=== PATIENT | male | born 1965 ===

== ENCOUNTER 2016-06-14 13:44 | Emergency (ER) | payer OTHER ==
[2016-06-14] MEDS ORDERED: Sodium Chloride 0.9% 1,000 ML IV ONE (14:12)
[2016-06-14] MEDS ORDERED: Sodium Chloride 0.9% 1,000 ML ONE (14:51)
[2016-06-14 14:56] LABS: BASO % 0.7 % (0.0-2.0); EOS # 0.1 K/uL (0.0-0.7); EOS % 1.8 % (0.0-4.0); HEMATOCRIT 38.3 % (35.0-51.0); LYMPH # 0.6 K/uL (1.0-4.3); LYMPH % 15.2 % (20.0-40.0); MEAN CELL VOLUME 95.2 fL (80.0-94.0); MEAN CORPUSCULAR HEMOGLOBIN 32.5 pg (27.0-31.0); MEAN CORPUSCULAR HGB CONC 34.2 g/dL (33.0-37.0); MEAN PLATELET VOLUME 7.3 fL (7.2-11.7); MONO # 0.5 K/uL (0.0-0.8); MONO % 11.6 % (0.0-10.0); RED CELL DISTRIBUTION WIDTH 13.3 % (11.5-14.5); WHITE BLOOD COUNT 4.1 K/uL (4.8-10.8)
--- NOTE | 2016-06-14 15:04 | RAD ---
PROCEDURE: CHEST RADIOGRAPH, 1 VIEW HISTORY: SOB COMPARISON: Comparison chest 02/11/2016 FINDINGS: LUNGS: Clear. PLEURA: No pneumothorax or pleural fluid seen. CARDIOVASCULAR: Normal. OSSEOUS STRUCTURES: No significant abnormalities. VISUALIZED UPPER ABDOMEN: Normal. OTHER FINDINGS: None. IMPRESSION: No active disease.
[2016-06-14 15:05] LABS: CHLORIDE 102 mmol/L (98-107)
[2016-06-14 15:06] LABS: POTASSIUM 3.9 mmol/L (3.6-5.2); SODIUM 137 mmol/L (132-148)
[2016-06-14 15:08] LABS: ALB/GLOB RATIO 1.2 (1.0-2.1); AST/SGOT 27 U/L (17-59); BILIRUBIN,TOTAL 0.6 mg/dL (0.2-1.3); CARBON DIOXIDE 23 mmol/L (22-30); GFR AFRICAN-AMERICAN > 60; TOTAL PROTEIN 7.7 g/dL (6.3-8.3)
[2016-06-14 15:09] LABS: ALCOHOL SERUM < 10 mg/dl (0-10); ALKALINE PHOSPHATASE 52 U/L (38-126); ALT/SGPT 36 U/L (21-72); BLOOD UREA NITROGEN 14 mg/dL (9-20); CALCIUM 8.6 mg/dl (8.6-10.4); GLUCOSE,RANDOM 102 mg/dL (75-110)
--- NOTE | 2016-06-14 15:24 | C.PDOC ---
History Of Present Illness The patient, a 51 y/o male, presents to the ED for evaluation of left-sided chest discomfort, weakness, lethargy and diarrhea which began earlier today. Patient denies substance abuse, alcohol abuse, or consumption of new foods. Time Seen by Provider: 06/14/16 14:11 Chief Complaint (Nursing): Cough, Cold, Congestion History Per: Patient History/Exam Limitations: no limitations Onset/Duration Of Symptoms: Hrs Current Symptoms Are (Timing): Still Present Additional History Per: Patient Past Medical History Reviewed: Historical Data, Nursing Documentation, Vital Signs - Medical History PMH: Back Problems Surgical History: No Surg Hx Family History: States: Unknown Family Hx - Social History Hx Tobacco Use: No Hx Alcohol Use: No Hx Substance Use: Yes (thc) - Immunization History Hx Tetanus Toxoid Vaccination: No Hx Influenza Vaccination: No Hx Pneumococcal Vaccination: No Review Of Systems Except As Marked, All Systems Reviewed And Found Negative. Constitutional: Positive for: Weakness, Other (+lethargy ). Negative for: Fever , Chills Cardiovascular: Positive for: Chest Pain (left-sided, discomfort ) Physical Exam - Physical Exam Appears: Non-toxic, No Acute Distress Skin: Normal Color, Warm, Dry, No Rash Head: Atraumatic, Normacephalic Eye(s): bilateral: Normal Inspection, PERRL, EOMI Oral Mucosa: Moist Neck: Normal ROM, Supple Chest: Symmetrical, No Deformity, Tenderness (to left side of chest on palpation ) Respiratory: Normal Breath Sounds, No Rales, No Rhonchi, No Wheezing Gastrointestinal/Abdominal: Soft, No Tenderness, No Guarding, No Rebound Back: Normal Inspection, No Vertebral Tenderness, No Paraspinal Tenderness Extremity: Normal ROM, Capillary Refill (less than 2 seconds) Pulses: Left Dorsalis Pedis: Normal, Right Dorsalis Pedis: Normal Neurological/Psych: Oriented x3, Normal Speech, Normal Cognition Gait: Steady ED Course And Treatment - Laboratory Results Result Diagrams: 06/14/16 14:53 06/14/16 14:53 Lab Interpretation: Normal (trop/bnp neg.) ECG: Interpreted By Me, Viewed By Me ECG Rhythm: Sinus Rhythm ECG Interpretation: No Acute Changes Rate From EC - Radiology CXR: Interpreted by Me CXR Interpretation: Yes: No Acute Disease - Other Rad CXR X-Ray: Interpreted by Me, Viewed By Me, Read By Radiologist Interpretation: IMPRESSION: No active disease. Reevaluation Time: 15:35 Reassessment Condition: Improved Medical Decision Making Medical Decision Making: L chest costochondritis, ? viral diarrhea vs withdrawal syndrome (pt denies) Disposition Doctor Will See Patient In The: Office Counseled Patient/Family Regarding: Studies Performed, Diagnosis - Disposition Referrals: Saleem Bloom MD [Medical Doctor] - Disposition: HOME/ ROUTINE Disposition Time: 15:36 Condition: GOOD Additional Instructions: plenty of fluids, Motrin 400-600 mg every 6 hours as needed for body aches/L chest discomfort. Follow-up with your pmd to consider referral for Gastroenterology for your supposed rectal bleeding. Normal Hemoglobin today. Instructions: Costochondritis (ED), Acute Diarrhea (ED) - Clinical Impression Clinical Impression: Chest discomfort - Scribe Statement The provider has reviewed the documentation as recorded by the Scribe (Kary Crum) Provider Attestation: All medical record entries made by the Scribe were at my direction and personally dictated by me. I have reviewed the chart and agree that the record accurately reflects my personal performance of the history, physical exam, medical decision making, and the department course for this patient. I have also personally directed, reviewed, and agree with the discharge instructions and disposition.
[2016-06-14 16:03] VITALS: BP 110/58; PULSE 83; RESP 16; TEMP 99.4; O2SAT 99
--- NOTE | 2016-06-15 22:22 | CARD ---
APPROVED REPORT EKG Measurement Heart [id number] <Conclusion> Normal sinus rhythm Normal ECG
== END 2016-06-14 16:02 | disposition home or self-care (01) ==
LOC: C.ER 13:44
DX: R07.89 Other chest pain (principal)
CPT/HCPCS: 71010; 80053; 80320; 83880; 84484; 85025; 93005; 96374; 99285; J1885; J7040

== ENCOUNTER 2017-05-17 20:51 | Emergency (ER) | payer OTHER ==
[2017-05-17 21:05] VITALS: PULSE 87; RESP 20; TEMP 99.4; O2SAT 96
[2017-05-17 21:06] VITALS: BP 100/60
[2017-05-17] MEDS ORDERED: guaiFENesin 100 mg/5 ml Syrup UD PO STA (21:54)
--- NOTE | 2017-05-17 21:56 | C.PDOC ---
History Of Present Illness 52 year old male presents to the ER with a complaint of congestion, nonproductive cough, and body aches for the past 1 day. Patient reports he was visited by his sister yesterday who presented with the same symptoms. Denies fever or chills. Time Seen by Provider: 05/17/17 21:38 Chief Complaint (Nursing): Flu-like Symptoms History Per: Patient History/Exam Limitations: no limitations Onset/Duration Of Symptoms: Days Current Symptoms Are (Timing): Still Present Location Of Pain: Diffuse Myalgias Sick Contacts (Context): None Associated Symptoms: Cough, Myalgias, Nasal Congestion Ear Symptoms: Bilateral: None Recent travel outside of the [place]: No Past Medical History Reviewed: Historical Data, Nursing Documentation, Vital Signs Vital Signs: Last Vital Signs Temp 99.4 F 05/17/17 20:54 Pulse 87 05/17/17 20:54 Resp 20 05/17/17 20:54 BP 100/60 05/17/17 20:54 Pulse Ox 96 05/17/17 21:55 - Medical History PMH: Back Problems Family History: States: Unknown Family Hx - Social History Hx Tobacco Use: No Hx Alcohol Use: No Hx Substance Use: Yes (thc) - Immunization History Hx Tetanus Toxoid Vaccination: No Hx Influenza Vaccination: No Hx Pneumococcal Vaccination: No Review Of Systems Constitutional: Negative for: Fever, Chills ENT: Positive for: Nose Congestion Respiratory: Positive for: Cough. Negative for: Sputum Musculoskeletal: Positive for: Other (Body aches) Physical Exam - Physical Exam Appears: Non-toxic, No Acute Distress Skin: Normal Color, Warm, Dry Head: Atraumatic, Normacephalic Eye(s): bilateral: Normal Inspection Oral Mucosa: Moist Chest: Symmetrical, No Tenderness Cardiovascular: Rhythm Regular Respiratory: No Rales, Rhonchi (Mild scattered), Wheezing Gastrointestinal/Abdominal: Soft, No Tenderness Neurological/Psych: Oriented x3, Normal Speech ED Course And Treatment O2 Sat by Pulse Oximetry: 96 (room air) Pulse Ox Interpretation: Normal Medical Decision Making Medical Decision Making: typical influenza s/s + diarrhea stable vs's educated and first dose given in ED Disposition Doctor Will See Patient In The: Office Counseled Patient/Family Regarding: Studies Performed, Diagnosis - Disposition Referrals: [facility] [Outside] Disposition: HOME/ ROUTINE Disposition Time: 21:55 Condition: GOOD Additional Instructions: Tamiflu 75 mg twice a day for 5 days- anti-viral treatment for Influenza Dayquil and Nyquil (or non-brand name equivalents) liberally for symptomatic relief. Plenty of fluids BRAT diet (bananas, white rice, apples, toast/bread) for watery stools/diarrhea. Remember these symptoms will last 10-14 days, be patient. Follow-up in our outpatient Clinic as needed. Prescriptions: Oseltamivir [Tamiflu] 75 mg PO BID #9 cap Instructions: Flu, Adult (DC) Forms: [employer] (Frisian) - Clinical Impression Clinical Impression: Influenza-like illness - Scribe Statement The provider has reviewed the documentation as recorded by the Scribe Casper Gray All medical record entries made by the Scribe were at my direction and personally dictated by me. I have reviewed the chart and agree that the record accurately reflects my personal performance of the history, physical exam, medical decision making, and the department course for this patient. I have also personally directed, reviewed, and agree with the discharge instructions and disposition.
[2017-05-17] MEDS ORDERED: guaiFENesin 100 mg/5 ml Syrup UD ONE (22:04)
--- NOTE | 2017-05-18 22:49 | CARD ---
APPROVED REPORT EKG Measurement Heart [id number] <Conclusion> Normal sinus rhythm Normal ECG
== END 2017-05-17 22:15 | disposition home or self-care (01) ==
LOC: C.ER 20:51
DX: J11.1 Influenza due to unidentified influenza virus with other respiratory manifestations (principal)

== ENCOUNTER 2018-04-15 05:10 | Observation (INO) | payer SELFPAY ==
[2018-04-15] MEDS ORDERED: Sodium Chloride 0.9% 1,000 ML IV ONE ×3 (05:27→10:00)
--- NOTE | 2018-04-15 05:27 | C.PDOC ---
History Of Present Illness 53 year old male presents to the ER with a complaint of fever for the past 5 days associated with cough. Patient reports now having pain with coughing. Patient had syncopal episode while in ER. Denies nausea, vomiting, or abdominal pain. Chief Complaint (Nursing): Syncope History Per: Patient History/Exam Limitations: no limitations Onset/Duration Of Symptoms: Days (5) Current Symptoms Are (Timing): Still Present Associated Symptoms: Fever, Cough, Other (Syncope) Recent travel outside of the [place]: No Past Medical History Reviewed: Historical Data, Nursing Documentation, Vital Signs Vital Signs: Last Vital Signs Temp 102.6 F H 04/15/18 05:12 Pulse 92 H 04/15/18 05:24 Resp 20 04/15/18 05:12 BP 92/53 L 04/15/18 05:24 Pulse Ox 100 04/15/18 05:12 - Medical History PMH: Back Problems Family History: States: Unknown Family Hx - Social History Hx Tobacco Use: No Hx Alcohol Use: No Hx Substance Use: Yes (thc) - Immunization History Hx Tetanus Toxoid Vaccination: No Hx Influenza Vaccination: No Hx Pneumococcal Vaccination: No Review Of Systems Constitutional: Positive for: Fever Cardiovascular: Negative for: Chest Pain, Palpitations Respiratory: Positive for: Cough, Pleuritic Pain Gastrointestinal: Negative for: Nausea, Vomiting Neurological: Positive for: Other (Syncope). Negative for: Weakness, Numbness Physical Exam - Physical Exam Appears: Non-toxic, Other (Mildly in distress due to pain) Skin: Normal Color, Warm, Dry Head: Atraumatic, Normacephalic Eye(s): bilateral: Normal Inspection, PERRL, EOMI Oral Mucosa: Moist Neck: Normal, Supple Chest: Symmetrical, No Tenderness Cardiovascular: Rhythm Regular Respiratory: No Rales, Rhonchi (occasional), No Wheezing Gastrointestinal/Abdominal: Soft, No Tenderness Back: No CVA Tenderness Extremity: Normal ROM (x4) Neurological/Psych: Oriented x3, Normal Speech, Other (No focal deficit) Gait: Steady ED Course And Treatment - Laboratory Results Result Diagrams: 04/15/18 05:35 04/15/18 05:35 ECG: Interpreted By Me, Viewed By Me ECG Rhythm: Sinus Rhythm ECG Interpretation: No Acute Changes Interpretation Of ECG: NSR, poss. LAE, borderline tracings. Rate From EC O2 Sat by Pulse Oximetry: 100 (Room air) Pulse Ox Interpretation: Normal Progress Note: CT head, EKG, blood work, CXR, flu swab, and urinalysis ordered. IV fluids and tylenol administered. Disposition - Disposition Disposition Time: 07:00 Condition: STABLE Forms: [facility] (Estonian) - Clinical Impression Clinical Impression: Syncope, Febrile illness - Scribe Statement The provider has reviewed the documentation as recorded by the Scribe Casper Gray All medical record entries made by the Scribe were at my direction and personally dictated by me. I have reviewed the chart and agree that the record accurately reflects my personal performance of the history, physical exam, medical decision making, and the department course for this patient. I have also personally directed, reviewed, and agree with the discharge instructions and disposition. Physician Patient Turnover Patient Signed Over To: Nu Muñiz Handoff Comments: pending CXR, Hx of syncope, cough, and fever.
[2018-04-15 05:40] LABS: BASO % 0.9 % (0.0-2.0); EOS % 1.1 % (0.0-4.0); HEMOGLOBIN 13.5 g/dL (12.0-18.0); LYMPH # 1.2 K/uL (1.0-4.3); LYMPH % 30.6 % (20.0-40.0); MEAN CORPUSCULAR HEMOGLOBIN 33.5 pg (27.0-31.0); MEAN CORPUSCULAR HGB CONC 34.2 g/dL (33.0-37.0); MONO # 0.6 K/uL (0.0-0.8); MONO % 16.4 % (0.0-10.0); RBC 4.04 Mil/uL (4.40-5.90); RED CELL DISTRIBUTION WIDTH 13.3 % (11.5-14.5); WHITE BLOOD COUNT 3.8 K/uL (4.8-10.8)
[2018-04-15 05:45] LABS: INR 1.1; PARTIAL THROMBOPLASTIN TIME 38 SECONDS (21-34); PROTHROMBIN TIME 12.5 SECONDS (9.7-12.2)
[2018-04-15 05:45] LABS: URINE BILIRUBIN NEGATIVE (NEGATIVE); URINE BLOOD NEGATIVE (NEGATIVE); URINE CLARITY Clear (Clear); URINE COLOR Yellow (YELLOW); URINE GLUCOSE (UA) NORMAL (Normal); URINE LEUKOCYTE ESTERASE NEG Leu/uL (Negative); URINE PROTEIN 1+ mg/dL (NEGATIVE); URINE UROBILINOGEN NORMAL mg/dL (0.2-1.0)
[2018-04-15 05:50] LABS: ALB/GLOB RATIO 1.5 (1.0-2.1); ALBUMIN 4.3 g/dL (3.5-5.0); ALT/SGPT 26 U/L (21-72); AST/SGOT 26 U/L (17-59); BLOOD UREA NITROGEN 25 mg/dL (9-20); CALCIUM 8.3 mg/dl (8.6-10.4); GFR NON-AFRICAN AMERICAN > 60
[2018-04-15 05:56] LABS: D DIMER < 200 ng/mlDDU (0-243)
[2018-04-15 05:59] LABS: BARBITURATES, UR NEGATIVE (NEGATIVE); BENZODIAZEPINES, UR NEGATIVE (NEGATIVE); OPIATES, UR NEGATIVE (NEGATIVE); PHENCYCLIDINE, UR NEGATIVE (NEGATIVE)
--- NOTE | 2018-04-15 07:36 | CT ---
Date of service: 04/15/2018 PROCEDURE: CT HEAD WITHOUT CONTRAST. HISTORY: syncope COMPARISON: None available. TECHNIQUE: Axial computed tomography images were obtained through the head/brain without intravenous contrast. Radiation dose: Total exam DLP = 1180.21 mGy-cm. This CT exam was performed using one or more of the following dose reduction techniques: Automated exposure control, adjustment of the mA and/or kV according to patient size, and/or use of iterative reconstruction technique. FINDINGS: HEMORRHAGE: No intracranial hemorrhage. BRAIN: No mass effect or edema. No atrophy or chronic microvascular ischemic changes. VENTRICLES: Unremarkable. No hydrocephalus. CALVARIUM: Unremarkable. PARANASAL SINUSES: Mild mucosal thickening and opacification of the ethmoid air cells. MASTOID AIR CELLS: Unremarkable as visualized. No inflammatory changes. OTHER FINDINGS: Study limited secondary to suboptimal patient positioning. IMPRESSION: No acute intracranial abnormality. Sinus mucosal disease as above. If symptoms persists, consider correlation with MRI. A preliminary report was generated at 6:43 a.m. on 04/15/[address] Ernesto Vogt from [employer].
[2018-04-15] MEDS ORDERED: Albuterol 0.083% Inhal Sol (2.5 mg/3 mL) UD IH STA (07:54)
[2018-04-15] MEDS ORDERED: Albuterol 0.083% Inhal Sol (2.5 mg/3 mL) UD ONE (08:08)
--- NOTE | 2018-04-15 09:11 | RAD ---
Date of service: 04/15/2018 PROCEDURE: CHEST RADIOGRAPH, 1 VIEW HISTORY: SOB COMPARISON: 06/14/2016 FINDINGS: LUNGS: Clear. PLEURA: No pneumothorax or pleural fluid seen. CARDIOVASCULAR: No aortic atherosclerotic calcification present. Normal. OSSEOUS STRUCTURES: No significant abnormalities. VISUALIZED UPPER ABDOMEN: Normal. OTHER FINDINGS: None. IMPRESSION: No active disease.
[2018-04-15] MEDS ORDERED: Albuterol-Ipratrop 3 mg / 0.5 (3 ml) UD INH ONE (10:30)
[2018-04-15 11:22] LABS: ABG ALLEN TEST POS; ARTERIAL BLOOD GAS HCO3 22.7 mmol/L (21-28); ARTERIAL BLOOD GAS PCO2 30 mm/Hg (35-45); ARTERIAL BLOOD GAS PH 7.44 (7.35-7.45); ARTERIAL BLOOD GAS PO2 66 mm/Hg (80-100); ARTERIAL BLOOD GAS TCO2 21.3 mmol/L (22-28)
[2018-04-15] MEDS ORDERED: Vancomycin 1 gm/NS 200 ml 1 GM/200 ML BAG IVPB SCH ×2 (14:30→15:30)
[2018-04-15] MEDS ORDERED: Piperacill/Tazo 3.375gm in Dex 3.375 GM/50 ML BAG IVPB SCH (14:30)
--- NOTE | 2018-04-15 15:02 | CP.PCM.HP ---
<Bairon De Santiago - Last Filed: 04/15/18 15:12> History of Present Illness - History of Present Illness History of Present Illness: PGY-1 H&P for Dr. Jolley's service CC: sob, fevers, cough, syncope, bodyaches, pleuritic pain HPI: Patient is a 53 yo male w/ PMH of PTSD admitted to hospital for fevers and low blood pressure. Patient states on Thursday he began having all of his symptoms including cough, fever, body aches, pleuritic chest pain, weakness, vomiting, and diarrhea. Patient states he had no appetite due to the nasuea. Patient states a coworker at work was also sick with similar complaints who went to hospital. Patient states he took multiple Tylenol every 4 hours yesterday to ramone his symptoms. Patient states he was walking to hospital but does not remember how he actually got into hospital probably 2/2 patient passing out. Patient denies constipation, vision changes, sneezing. PMH- PTSD PSH- Denies FH- Denies Alls- NKDA Meds- Marijuana for PTSD Social- Admits to tobacco use (20 years), MJ and cocaine use, denies alcohol use Code- Full Code Present on Admission - Present on Admission Any Indicators Present on Admission: No Review of Systems - Review of Systems Review of Systems: 12 point ROS obtained and noted in HPI Past Patient History - Infectious Disease Hx of Infectious Diseases: None - Past Social History Smoking Status: Heavy Smoker > 10 Cigarettes Daily - CARDIAC Other/Comment: ? heart problems. - PSYCHIATRIC Hx Substance Use: Yes (thc) - SURGICAL HISTORY Hx Surgeries: Yes Hx Orthopedic Surgery: Yes (back surgery) Other/Comment: back surgery - ANESTHESIA Hx Anesthesia: Yes Hx Anesthesia Reactions: No Meds Allergies/Adverse Reactions: Allergies Allergy/AdvReac Type Severity Reaction Status Date / Time No Known Allergies Allergy Verified 04/15/18 05:18 Physical Exam - Constitutional Appears: Non-toxic, No Acute Distress - Head Exam Head Exam: NORMAL INSPECTION, NORMOCEPHALIC - Eye Exam Eye Exam: EOMI, Normal appearance. absent: Nystagmus, Scleral icterus - ENT Exam ENT Exam: Mucous Membranes Dry - Respiratory Exam Respiratory Exam: Wheezes, NORMAL BREATHING PATTERN. absent: Decreased Breath Sounds, Clear to Auscultation Bilateral, Rhonchi, Respiratory Distress - Cardiovascular Exam Cardiovascular Exam: REGULAR RHYTHM, +S1, +S2. absent: Tachycardia - GI/Abdominal Exam GI & Abdominal Exam: Normal Bowel Sounds, Soft. absent: Diminished Bowel Sounds, Distended, Firm, Guarding, Tenderness - Extremities Exam Extremities exam: Positive for: normal inspection. Negative for: calf tenderness, pedal edema - Neurological Exam Neurological exam: Alert, Oriented x3 - Psychiatric Exam Psychiatric exam: Normal Affect, Normal Mood - Skin Skin Exam: Intact, Normal Color Results - Vital Signs Recent Vital Signs: Last Vital Signs Temp 98.3 F 04/15/18 11:00 Pulse 71 04/15/18 11:00 Resp 20 04/15/18 11:00 BP 97/67 L 04/15/18 11:00 Pulse Ox 96 04/15/18 14:34 - Labs Result Diagrams: 04/15/18 05:35 04/15/18 05:35 Labs: Laboratory Results - last 24 hr 04/15/18 04/15/18 04/15/18 05:13 05:35 05:35 WBC 3.8 L RBC 4.04 L Hgb 13.5 Hct 39.6 MCV 98.0 H D MCH 33.5 H MCHC 34.2 RDW 13.3 Plt Count 229 MPV 8.0 Neut % (Auto) 51.0 Lymph % (Auto) 30.6 [place] % (Auto) 16.4 H Eos % (Auto) 1.1 Baso % (Auto) 0.9 Neut # (Auto) 2.0 Lymph # (Auto) 1.2 [place] # (Auto) 0.6 Eos # (Auto) 0.0 Baso # (Auto) 0.0 PT 12.5 H INR 1.1 APTT 38 H D-Dimer, Quantitative < 200 Puncture Site pCO2 pO2 HCO3 ABG pH ABG Total CO2 ABG O2 Saturation ABG Base Excess Tim[place] Test ABG Potassium A-a O2 Difference Respiratory Index Glucose Lactate FiO2 Sodium Potassium Chloride Carbon Dioxide Anion Gap BUN Creatinine Est GFR ( Amer) Est GFR (Non-Af Amer) POC Glucose (mg/dL) 98 Random Glucose Calcium Total Bilirubin AST ALT Alkaline Phosphatase Troponin I NT-Pro-B Natriuret Pep Total Protein Albumin Globulin Albumin/Globulin Ratio Arterial Blood Potassium Urine Color Urine Clarity Urine pH Ur Specific [place] Urine Protein Urine Glucose (UA) Urine Ketones Urine Blood Urine Nitrate Urine Bilirubin Urine Urobilinogen Ur Leukocyte Esterase Urine WBC (Auto) Urine RBC (Auto) Urine Opiates Screen Urine Methadone Screen Ur Barbiturates Screen Ur Phencyclidine Scrn Ur Amphetamines Screen U Benzodiazepines Scrn U Oth Cocaine Metabols U Cannabinoids Screen Influenza Typ A,B (EIA) 04/15/18 04/15/18 04/15/18 05:35 05:40 05:40 WBC RBC Hgb Hct MCV MCH MCHC RDW Plt Count MPV Neut % (Auto) Lymph % (Auto) [place] % (Auto) Eos % (Auto) Baso % (Auto) Neut # (Auto) Lymph # (Auto) [place] # (Auto) Eos # (Auto) Baso # (Auto) PT INR APTT D-Dimer, Quantitative Puncture Site pCO2 pO2 HCO3 ABG pH ABG Total CO2 ABG O2 Saturation ABG Base Excess [place] Test ABG Potassium A-a O2 Difference Respiratory Index Glucose Lactate FiO2 Sodium 136 Potassium 4.2 Chloride 102 Carbon Dioxide 24 Anion Gap 14 BUN 25 H Creatinine 1.1 Est GFR ( Amer) > 60 Est GFR (Non-Af Amer) > 60 POC Glucose (mg/dL) Random Glucose 98 Calcium 8.3 L Total Bilirubin 0.3 AST 26 ALT 26 Alkaline Phosphatase 81 Troponin I < 0.0120 NT-Pro-B Natriuret Pep 47.0 Total Protein 7.3 Albumin 4.3 Globulin 2.9 Albumin/Globulin Ratio 1.5 Arterial Blood Potassium Urine Color Yellow Urine Clarity Clear Urine pH 9.0 Ur Specific [place] 1.020 Urine Protein 1+ H Urine Glucose (UA) Normal Urine Ketones Negative Urine Blood Negative Urine Nitrate Negative Urine Bilirubin Negative Urine Urobilinogen Normal Ur Leukocyte Esterase Neg Urine WBC (Auto) < 1 Urine RBC (Auto) < 1 Urine Opiates Screen Negative Urine Methadone Screen Negative Ur Barbiturates Screen Negative Ur Phencyclidine Scrn Negative Ur Amphetamines Screen Negative U Benzodiazepines Scrn Negative U Oth Cocaine Metabols Positive H U Cannabinoids Screen Positive H Influenza Typ A,B (EIA) 04/15/18 04/15/18 06:14 11:19 WBC RBC Hgb Hct MCV MCH MCHC RDW Plt Count MPV Neut % (Auto) Lymph % (Auto) [place] % (Auto) Eos % (Auto) Baso % (Auto) Neut # (Auto) Lymph # (Auto) [place] # (Auto) Eos # (Auto) Baso # (Auto) PT INR APTT D-Dimer, Quantitative Puncture Site Rra pCO2 30 L pO2 66 L HCO3 22.7 ABG pH 7.44 ABG Total CO2 21.3 L ABG O2 Saturation 95.0 ABG Base Excess -2.7 L [place] Test Pos ABG Potassium 3.5 L A-a O2 Difference 46.0 Respiratory Index 0.7 Glucose 86 Lactate 0.7 FiO2 21.0 Sodium 141.0 Potassium Chloride 112.0 H Carbon Dioxide Anion Gap BUN Creatinine Est GFR ( Amer) Est GFR (Non-Af Amer) POC Glucose (mg/dL) Random Glucose Calcium Total Bilirubin AST ALT Alkaline Phosphatase Troponin I NT-Pro-B Natriuret Pep Total Protein Albumin Globulin Albumin/Globulin Ratio Arterial Blood Potassium 3.5 L Urine Color Urine Clarity Urine pH Ur Specific [place] Urine Protein Urine Glucose (UA) Urine Ketones Urine Blood Urine Nitrate Urine Bilirubin Urine Urobilinogen Ur Leukocyte Esterase Urine WBC (Auto) Urine RBC (Auto) Urine Opiates Screen Urine Methadone Screen Ur Barbiturates Screen Ur Phencyclidine Scrn Ur Amphetamines Screen U Benzodiazepines Scrn U Oth Cocaine Metabols U Cannabinoids Screen Influenza Typ A,B (EIA) Negative for flu a/b Assessment & Plan - Assessment and Plan (Free Text) Assessment: Patient is a 53 yo male w/ PMH of PTSD admitted to hospital for flu like symptoms. Of note patient had high fevers and low blood pressure. CXR clear. Influenza negative. Will treat empirically for flu and PNA due to clinical symptoms. Sepsis likely 2/2 from respiratory infection (viral vs bacterial) 04/15/18 CXR clear Tylenol PRN for fevers Robitussin PRN Procal pending Influenza negative NS bolus x 2 Tamiflu 75mg po bid Zosyn/Vanc for empiric PNA coverage BCx pending Trop pending Syncope On admission patient was hypotensive NS bolus x 2; Fluids dc'ed as patient able to tolerate meals and fluids Echo pending SOB possible COPD exacerbation from infectious etiology patient has no formal diagnosis but has > 20 year smoking history + wheezing on exam Duoneb x 2; Duoneb PRN NC PRN Substance Abuse Educated patient on UDS results and the effects of cocaine to heart and lungs GI ppx: Protonix PO 40mg po daily DVT ppx: Heparin 5000 sc q8, SCDs b/l PGY-1 Bairon De Santiago Medical Management discussed with Dr. Jolley <Danny Jolleyras - Last Filed: 04/15/18 19:41> Results - Vital Signs Recent Vital Signs: Last Vital Signs Temp 100.6 F H 04/15/18 17:57 Pulse 85 04/15/18 16:00 Resp 22 04/15/18 16:00 BP 114/70 04/15/18 16:00 Pulse Ox 97 04/15/18 16:00 - Labs Result Diagrams: 04/15/18 05:35 04/15/18 05:35 Labs: Laboratory Results - last 24 hr 04/15/18 04/15/18 04/15/18 05:13 05:35 05:35 WBC 3.8 L RBC 4.04 L Hgb 13.5 Hct 39.6 MCV 98.0 H D MCH 33.5 H MCHC 34.2 RDW 13.3 Plt Count 229 MPV 8.0 Neut % (Auto) 51.0 Lymph % (Auto) 30.6 [place] % (Auto) 16.4 H Eos % (Auto) 1.1 Baso % (Auto) 0.9 Neut # (Auto) 2.0 Lymph # (Auto) 1.2 [place] # (Auto) 0.6 Eos # (Auto) 0.0 Baso # (Auto) 0.0 PT 12.5 H INR 1.1 APTT 38 H D-Dimer, Quantitative < 200 Puncture Site pCO2 pO2 HCO3 ABG pH ABG Total CO2 ABG O2 Saturation ABG Base Excess [place] Test ABG Potassium A-a O2 Difference Respiratory Index Glucose Lactate FiO2 Sodium Potassium Chloride Carbon Dioxide Anion Gap BUN Creatinine Est GFR ( Amer) Est GFR (Non-Af Amer) POC Glucose (mg/dL) 98 Random Glucose Calcium Total Bilirubin AST ALT Alkaline Phosphatase Troponin I NT-Pro-B Natriuret Pep Total Protein Albumin Globulin Albumin/Globulin Ratio Procalcitonin Arterial Blood Potassium Urine Color Urine Clarity Urine pH Ur Specific [place] Urine Protein Urine Glucose (UA) Urine Ketones Urine Blood Urine Nitrate Urine Bilirubin Urine Urobilinogen Ur Leukocyte Esterase Urine WBC (Auto) Urine RBC (Auto) Urine Opiates Screen Urine Methadone Screen Ur Barbiturates Screen Ur Phencyclidine Scrn Ur Amphetamines Screen U Benzodiazepines Scrn U Oth Cocaine Metabols U Cannabinoids Screen Influenza Typ A,B (EIA) 04/15/18 04/15/18 04/15/18 05:35 05:40 05:40 WBC RBC Hgb Hct MCV MCH MCHC RDW Plt Count MPV Neut % (Auto) Lymph % (Auto) [place] % (Auto) Eos % (Auto) Baso % (Auto) Neut # (Auto) Lymph # (Auto) [place] # (Auto) Eos # (Auto) Baso # (Auto) PT INR APTT D-Dimer, Quantitative Puncture Site pCO2 pO2 HCO3 ABG pH ABG Total CO2 ABG O2 Saturation ABG Base Excess [place] Test ABG Potassium A-a O2 Difference Respiratory Index Glucose Lactate FiO2 Sodium 136 Potassium 4.2 Chloride 102 Carbon Dioxide 24 Anion Gap 14 BUN 25 H Creatinine 1.1 Est GFR ( Amer) > 60 Est GFR (Non-Af Amer) > 60 POC Glucose (mg/dL) Random Glucose 98 Calcium 8.3 L Total Bilirubin 0.3 AST 26 ALT 26 Alkaline Phosphatase 81 Troponin I < 0.0120 NT-Pro-B Natriuret Pep 47.0 Total Protein 7.3 Albumin 4.3 Globulin 2.9 Albumin/Globulin Ratio 1.5 Procalcitonin Arterial Blood Potassium Urine Color Yellow Urine Clarity Clear Urine pH 9.0 Ur Specific [place] 1.020 Urine Protein 1+ H Urine Glucose (UA) Normal Urine Ketones Negative Urine Blood Negative Urine Nitrate Negative Urine Bilirubin Negative Urine Urobilinogen Normal Ur Leukocyte Esterase Neg Urine WBC (Auto) < 1 Urine RBC (Auto) < 1 Urine Opiates Screen Negative Urine Methadone Screen Negative Ur Barbiturates Screen Negative Ur Phencyclidine Scrn Negative Ur Amphetamines Screen Negative U Benzodiazepines Scrn Negative U Oth Cocaine Metabols Positive H U Cannabinoids Screen Positive H Influenza Typ A,B (EIA) 04/15/18 04/15/18 04/15/18 06:14 11:05 11:19 WBC RBC Hgb Hct MCV MCH MCHC RDW Plt Count MPV Neut % (Auto) Lymph % (Auto) [place] % (Auto) Eos % (Auto) Baso % (Auto) Neut # (Auto) Lymph # (Auto) [place] # (Auto) Eos # (Auto) Baso # (Auto) PT INR APTT D-Dimer, Quantitative Puncture Site Rra pCO2 30 L pO2 66 L HCO3 22.7 ABG pH 7.44 ABG Total CO2 21.3 L ABG O2 Saturation 95.0 ABG Base Excess -2.7 L [place] Test Pos ABG Potassium 3.5 L A-a O2 Difference 46.0 Respiratory Index 0.7 Glucose 86 Lactate 0.7 FiO2 21.0 Sodium 141.0 Potassium Chloride 112.0 H Carbon Dioxide Anion Gap BUN Creatinine Est GFR ( Amer) Est GFR (Non-Af Amer) POC Glucose (mg/dL) Random Glucose Calcium Total Bilirubin AST ALT Alkaline Phosphatase Troponin I NT-Pro-B Natriuret Pep Total Protein Albumin Globulin Albumin/Globulin Ratio Procalcitonin 0.07 L Arterial Blood Potassium 3.5 L Urine Color Urine Clarity Urine pH Ur Specific [place] Urine Protein Urine Glucose (UA) Urine Ketones Urine Blood Urine Nitrate Urine Bilirubin Urine Urobilinogen Ur Leukocyte Esterase Urine WBC (Auto) Urine RBC (Auto) Urine Opiates Screen Urine Methadone Screen Ur Barbiturates Screen Ur Phencyclidine Scrn Ur Amphetamines Screen U Benzodiazepines Scrn U Oth Cocaine Metabols U Cannabinoids Screen Influenza Typ A,B (EIA) Negative for flu a/b 04/15/18 17:20 WBC RBC Hgb Hct MCV MCH MCHC RDW Plt Count MPV Neut % (Auto) Lymph % (Auto) [place] % (Auto) Eos % (Auto) Baso % (Auto) Neut # (Auto) Lymph # (Auto) [place] # (Auto) Eos # (Auto) Baso # (Auto) PT INR APTT D-Dimer, Quantitative Puncture Site pCO2 pO2 HCO3 ABG pH ABG Total CO2 ABG O2 Saturation ABG Base Excess [place] Test ABG Potassium A-a O2 Difference Respiratory Index Glucose Lactate FiO2 Sodium Potassium Chloride Carbon Dioxide Anion Gap BUN Creatinine Est GFR ( Amer) Est GFR (Non-Af Amer) POC Glucose (mg/dL) Random Glucose Calcium Total Bilirubin AST ALT Alkaline Phosphatase Troponin I < 0.0120 NT-Pro-B Natriuret Pep Total Protein Albumin Globulin Albumin/Globulin Ratio Procalcitonin Arterial Blood Potassium Urine Color Urine Clarity Urine pH Ur Specific [place] Urine Protein Urine Glucose (UA) Urine Ketones Urine Blood Urine Nitrate Urine Bilirubin Urine Urobilinogen Ur Leukocyte Esterase Urine WBC (Auto) Urine RBC (Auto) Urine Opiates Screen Urine Methadone Screen Ur Barbiturates Screen Ur Phencyclidine Scrn Ur Amphetamines Screen U Benzodiazepines Scrn U Oth Cocaine Metabols U Cannabinoids Screen Influenza Typ A,B (EIA) Attending/Attestation - Attestation I have personally seen and examined this patient.: Yes I have fully participated in the care of the patient.: Yes I have reviewed all pertinent clinical information: Yes Notes (Text): Patient was here with flu like symptoms. He was c/o not eating well,nausea . He was hypotensive . Near syncccope likely due to hypotension. CT head ok. He was given fluis. we will follow cultures .On examination has Rhonchi. Treat him for possible influenza vs pneumonia fluids,tamiflu and zosyn I agree with the resident's documentation
[2018-04-15] MEDS: Piperacill/Tazo 3.375gm in Dex 3.375 GM/50 ML BAG IVPB SCH ×2 (16:47→22:23)
[2018-04-15] MEDS: Vancomycin 1 gm/NS 200 ml 1 GM/200 ML BAG IVPB SCH (16:48)
[2018-04-15] MEDS: guaiFENesin 100 mg/5 ml Syrup UD PO PRN ×2 (16:49→22:23)
[2018-04-15] MEDS: Pantoprazole 40 mg EC Tab PO SCH (22:23)
[2018-04-16] MEDS ORDERED: Multiple Vitamins Tab PO STA (00:36)
[2018-04-16 01:03] VITALS: RESP 20
[2018-04-16] MEDS: Piperacill/Tazo 3.375gm in Dex 3.375 GM/50 ML BAG IVPB SCH ×4 (04:06→21:35)
[2018-04-16 06:42] LABS: BASO % 0.7 % (0.0-2.0); HEMOGLOBIN 13.5 g/dL (12.0-18.0); LYMPH # 0.8 K/uL (1.0-4.3); LYMPH % 22.8 % (20.0-40.0); MEAN CELL VOLUME 97.8 fL (80.0-94.0); MEAN CORPUSCULAR HEMOGLOBIN 33.8 pg (27.0-31.0); MEAN CORPUSCULAR HGB CONC 34.5 g/dL (33.0-37.0); MEAN PLATELET VOLUME 8.1 fL (7.2-11.7); MONO # 0.4 K/uL (0.0-0.8); MONO % 12.2 % (0.0-10.0); NEUT # 2.3 K/uL (1.8-7.0); NEUT % 64.3 % (50.0-75.0); RBC 3.98 Mil/uL (4.40-5.90); RED CELL DISTRIBUTION WIDTH 13.1 % (11.5-14.5); WHITE BLOOD COUNT 3.6 K/uL (4.8-10.8)
[2018-04-16 07:17] LABS: ALB/GLOB RATIO 1.4 (1.0-2.1); ALBUMIN 4.3 g/dL (3.5-5.0); ALT/SGPT 24 U/L (21-72); AST/SGOT 26 U/L (17-59); BLOOD UREA NITROGEN 10 mg/dL (9-20); CALCIUM 8.3 mg/dl (8.6-10.4); GFR NON-AFRICAN AMERICAN > 60
[2018-04-16] MEDS: Albuterol-Ipratrop 3 mg / 0.5 (3 ml) UD INH PRN ×2 (07:58→13:35)
[2018-04-16] MEDS: Pantoprazole 40 mg EC Tab PO SCH (09:25)
--- NOTE | 2018-04-16 09:46 | CP.PCM.PN ---
<JonnathanBairon grubbs - Last Filed: 04/16/18 14:59> Subjective - Date & Time of Evaluation Date of Evaluation: 04/16/18 Time of Evaluation: 09:43 - Subjective Subjective: PGY-[address] Jolley's service Patient seen and examined at bedside. Patient reports not feeling well because he could not break fever. Admits to chills, headaches, diarrhea, and night sweats. Denies sob, chest pain, n/v, constipation and dysuria. Objective - Vital Signs/Intake and Output Vital Signs (last 24 hours): Temp Pulse Resp BP Pulse Ox 98.5 F 63 20 108/72 91 L 04/16/18 07:00 04/16/18 08:05 04/16/18 07:00 04/16/18 07:00 04/16/18 07:00 - Medications Medications: Current Medications Acetaminophen (Tylenol 325mg Tab) 650 mg PO Q6 PRN PRN Reason: Fever >100.4 F Last Admin: 04/16/18 00:11 Dose: 650 mg Albuterol/Ipratropium (Duoneb 3 Mg/0.5 Mg (3 Ml) Ud) 3 ml INH RQ4 PRN PRN Reason: Shortness of Breath Last Admin: 04/16/18 07:58 Dose: 3 ml Guaifenesin (Robitussin) 100 mg PO Q4H PRN PRN Reason: Cough Last Admin: 04/15/18 22:23 Dose: 100 mg Heparin Sodium (Porcine) (Heparin) 5,000 units SC Q8 SRIRAM Last Admin: 04/16/18 05:34 Dose: 5,000 units Vancomycin/Sodium Chloride (Vancomycin 1 Gm/Ns 200 Ml) 1 gm in 200 mls @ 166.7 mls/hr IVPB Q24H SRIRAM; Protocol Stop: 04/20/18 16:31 Last Admin: 04/15/18 16:48 Dose: 166.7 mls/hr Piperacillin Sod/Tazobactam Sod (Zosyn 3.375 Gm Iv Premix) 3.375 gm in 50 mls @ 100 mls/hr IVPB Q6H SRIRAM; Protocol Last Admin: 04/16/18 04:06 Dose: 100 mls/hr Influenza Virus Vaccine (Flucelvax Quad [id number] Syr) 60 mcg IM .ONCE ONE Stop: 04/17/18 10:01 Oseltamivir Phosphate (Tamiflu Cap) 75 mg PO BID [facility]; Protocol Stop: 04/20/18 14:17 Last Admin: 04/16/18 09:25 Dose: 75 mg Pantoprazole Sodium (Protonix Ec Tab) 40 mg PO DAILY [facility] Last Admin: 04/16/18 09:25 Dose: 40 mg Pneumococcal Polyvalent Vaccine (Pneumovax 23 Vaccine) 0.5 ml IM .ONCE ONE Stop: 04/17/18 10:01 - Labs Labs: 04/16/18 06:30 04/16/18 06:30 PT 12.5 SECONDS (9.7-12.2) H 04/15/18 05:35 INR 1.1 04/15/18 05:35 APTT 38 SECONDS (21-34) H 04/15/18 05:35 - Constitutional Appears: Non-toxic, No Acute Distress - Head Exam Head Exam: NORMAL INSPECTION, NORMOCEPHALIC - Eye Exam Eye Exam: EOMI, Normal appearance. absent: Nystagmus, Scleral icterus - ENT Exam ENT Exam: Mucous Membranes Dry - Respiratory Exam Respiratory Exam: Clear to Ausculation Bilateral, NORMAL BREATHING PATTERN. absent: Respiratory Distress - Cardiovascular Exam Cardiovascular Exam: REGULAR RHYTHM, +S1, +S2 - GI/Abdominal Exam GI & Abdominal Exam: Soft, Normal Bowel Sounds. absent: Distended, Firm, Guarding, Tenderness - Extremities Exam Extremities Exam: Normal Inspection. absent: Calf Tenderness, Pedal Edema - Neurological Exam Neurological Exam: Alert, Awake, Oriented x3 - Psychiatric Exam Psychiatric exam: Normal Affect, Normal Mood - Skin Skin Exam: Intact, Normal Color Assessment and Plan - Assessment and Plan (Free Text) Assessment: Sepsis likely 2/2 from respiratory infection (viral vs bacterial) 04/15/18 CXR clear Tylenol PRN for fevers; 1 x tordol Robitussin PRN Procal pending Influenza negative NS bolus x 2 Tamiflu 75mg po bid Zosyn/Vanc for empiric PNA coverage BCx pending Trop negative Neutropenia Pending HIV studies Syncope On admission patient was hypotensive NS bolus x 2; Fluids dc'ed as patient able to tolerate meals and fluids Echo pending SOB possible COPD exacerbation from infectious etiology patient has no formal diagnosis but has > 20 year smoking history + wheezing on exam Duoneb x 2; Duoneb PRN NC PRN Substance Abuse Educated patient on UDS results and the effects of cocaine to heart and lungs GI ppx: Protonix PO 40mg po daily DVT ppx: Heparin 5000 sc q8, SCDs b/l Disposition: Afebrile>24 hrs prior to d/c; pending HIV studies PGY-1 Bairon De Santiago Medical Management discussed with Dr. Jolley <Chas Jolley - Last Filed: 04/17/18 17:16> Objective - Vital Signs/Intake and Output Vital Signs (last 24 hours): Temp Pulse Resp BP Pulse Ox 98.3 F 65 20 103/62 94 L 04/17/18 07:00 04/17/18 07:00 04/17/18 07:00 04/17/18 07:00 04/17/18 09:00 Intake and Output: 04/17/18 04/17/18 06:59 18:59 Intake Total 1010 Balance 1010 - Labs Labs: 04/17/18 06:57 04/17/18 06:57 PT 12.5 SECONDS (9.7-12.2) H 04/15/18 05:35 INR 1.1 04/15/18 05:35 APTT 38 SECONDS (21-34) H 04/15/18 05:35 Attending/Attestation - Attestation I have personally seen and examined this patient.: Yes I have fully participated in the care of the patient.: Yes I have reviewed all pertinent clinical information, including history, physical exam and plan: Yes Notes (Text): Patient feels much better,has fever [facility] continue antibiotics and tamiflu follow cultures continue fluids,duoneb
[2018-04-16] MEDS: Vancomycin 1 gm/NS 200 ml 1 GM/200 ML BAG IVPB SCH (17:00)
[2018-04-16] MEDS ORDERED: Multiple Vitamins Tab PO ONE (23:29)
[2018-04-17] MEDS: Piperacill/Tazo 3.375gm in Dex 3.375 GM/50 ML BAG IVPB SCH ×2 (04:54→10:28)
[2018-04-17 07:01] LABS: BASO % 0.8 % (0.0-2.0); HEMOGLOBIN 13.2 g/dL (12.0-18.0); LYMPH # 1.3 K/uL (1.0-4.3); LYMPH % 59.3 % (20.0-40.0); MEAN CELL VOLUME 96.9 fL (80.0-94.0); MEAN CORPUSCULAR HEMOGLOBIN 32.6 pg (27.0-31.0); MEAN CORPUSCULAR HGB CONC 33.6 g/dL (33.0-37.0); MEAN PLATELET VOLUME 8.1 fL (7.2-11.7); MONO # 0.3 K/uL (0.0-0.8); MONO % 13.2 % (0.0-10.0); NEUT # 0.6 K/uL (1.8-7.0); NEUT % 24.7 % (50.0-75.0); NRBC % 0.1 % (0.0-2.0); RBC 4.04 Mil/uL (4.40-5.90); RED CELL DISTRIBUTION WIDTH 13.4 % (11.5-14.5); WHITE BLOOD COUNT 2.2 K/uL (4.8-10.8)
[2018-04-17 07:22] LABS: ALB/GLOB RATIO 1.3 (1.0-2.1); ALBUMIN 3.9 g/dL (3.5-5.0); ALT/SGPT 18 U/L (21-72); AST/SGOT 24 U/L (17-59); BLOOD UREA NITROGEN 16 mg/dL (9-20); CALCIUM 8.3 mg/dl (8.6-10.4); GFR NON-AFRICAN AMERICAN > 60
[2018-04-17 08:07] VITALS: BP 103/62; PULSE 65; TEMP 98.3; O2SAT 94
[2018-04-17] MEDS ORDERED: Pneumococcal 23-Valent Vaccine IM ONE (10:00)
[2018-04-17] MEDS ORDERED: Influenza Vaccine 60 mcg/0.5 mL SYR (4YR UP) IM ONE (10:00)
[2018-04-17] MEDS: Pantoprazole 40 mg EC Tab PO SCH (10:28)
--- NOTE | 2018-04-17 13:05 | CP.PCM.DIS ---
Provider - Provider Date of Admission: 04/15/18 08:07 Attending physician: Chas Jolley MD Primary care physician: [facility] Consults: N/A Time Spent in preparation of Discharge (in minutes): 40 Diagnosis - Discharge Diagnosis (1) Influenza-like illness Status: Resolved (2) Syncope Status: Resolved (3) Chest discomfort Status: Resolved (4) Cocaine abuse Status: Resolved Hospital Course - Lab Results Lab Results: Micro Results 04/15/18 06:14 Blood Blood Culture - Preliminary NO GROWTH AFTER 48 HOURS 04/15/18 05:57 Blood Blood Culture - Preliminary NO GROWTH AFTER 48 HOURS Most Recent Lab Values WBC 2.2 K/uL (4.8-10.8) L 04/17/18 06:57 RBC 4.04 Mil/uL (4.40-5.90) L 04/17/18 06:57 Hgb 13.2 g/dL (12.0-18.0) 04/17/18 06:57 Hct 39.2 % (35.0-51.0) 04/17/18 06:57 MCV 96.9 fL (80.0-94.0) H 04/17/18 06:57 MCH 32.6 pg (27.0-31.0) H 04/17/18 06:57 MCHC 33.6 g/dL (33.0-37.0) 04/17/18 06:57 RDW 13.4 % (11.5-14.5) 04/17/18 06:57 Plt Count 214 K/uL (130-400) 04/17/18 06:57 MPV 8.1 fL (7.2-11.7) 04/17/18 06:57 Neut % (Auto) 24.7 % (50.0-75.0) L 04/17/18 06:57 Lymph % (Auto) 59.3 % (20.0-40.0) H 04/17/18 06:57 [facility] % (Auto) 13.2 % (0.0-10.0) H 04/17/18 06:57 Eos % (Auto) 2.0 % (0.0-4.0) 04/17/18 06:57 Baso % (Auto) 0.8 % (0.0-2.0) 04/17/18 06:57 Neut # (Auto) 0.6 K/uL (1.8-7.0) L 04/17/18 06:57 Lymph # (Auto) 1.3 K/uL (1.0-4.3) 04/17/18 06:57 [facility] # (Auto) 0.3 K/uL (0.0-0.8) 04/17/18 06:57 Eos # (Auto) 0.0 K/uL (0.0-0.7) 04/17/18 06:57 Baso # (Auto) 0.0 K/uL (0.0-0.2) 04/17/18 06:57 PT 12.5 SECONDS (9.7-12.2) H 04/15/18 05:35 INR 1.1 04/15/18 05:35 APTT 38 SECONDS (21-34) H 04/15/18 05:35 D-Dimer, Quantitative < 200 ng/mlDDU (0-243) 04/15/18 05:35 Puncture Site Rra 04/15/18 11:19 pCO2 30 mm/Hg (35-45) L 04/15/18 11:19 pO2 66 mm/Hg (80-100) L 04/15/18 11:19 HCO3 22.7 mmol/L (21-28) 04/15/18 11:19 ABG pH 7.44 (7.35-7.45) 04/15/18 11:19 ABG Total CO2 21.3 mmol/L (22-28) L 04/15/18 11:19 ABG O2 Saturation 95.0 % (95-98) 04/15/18 11:19 ABG Base Excess -2.7 mmol/L (-2.0-3.0) L 04/15/18 11:19 [place] Test Pos 04/15/18 11:19 ABG Potassium 3.5 mmol/L (3.6-5.2) L 04/15/18 11:19 A-a O2 Difference 46.0 mm/Hg 04/15/18 11:19 Respiratory Index 0.7 04/15/18 11:19 Sodium 141.0 mmol/l (132-148) 04/15/18 11:19 Chloride 112.0 mmol/L (98-107) H 04/15/18 11:19 Glucose 86 mg/dl (75-110) 04/15/18 11:19 Lactate 0.7 mmol/L (0.7-2.1) 04/15/18 11:19 FiO2 21.0 % 04/15/18 11:19 Sodium 136 mmol/L (132-148) 04/17/18 06:57 Potassium 4.4 mmol/L (3.6-5.2) 04/17/18 06:57 Chloride 102 mmol/L (98-107) 04/17/18 06:57 Carbon Dioxide 29 mmol/L (22-30) 04/17/18 06:57 Anion Gap 10 (10-20) 04/17/18 06:57 BUN 16 mg/dL (9-20) 04/17/18 06:57 Creatinine 1.1 mg/dL (0.8-1.5) 04/17/18 06:57 Est GFR ( Amer) > 60 04/17/18 06:57 Est GFR (Non-Af Amer) > 60 04/17/18 06:57 POC Glucose (mg/dL) 98 mg/dL (65-110) 04/15/18 05:13 Random Glucose 97 mg/dL (75-110) 04/17/18 06:57 Calcium 8.3 mg/dl (8.6-10.4) L 04/17/18 06:57 Phosphorus 3.4 mg/dL (2.5-4.5) 04/17/18 06:57 Magnesium 2.1 mg/dL (1.6-2.3) 04/17/18 06:57 Total Bilirubin 0.2 mg/dL (0.2-1.3) 04/17/18 06:57 AST 24 U/L (17-59) 04/17/18 06:57 ALT 18 U/L (21-72) L D 04/17/18 06:57 Alkaline Phosphatase 67 U/L (38-126) 04/17/18 06:57 Troponin I < 0.0120 ng/mL (0.00-0.120) 04/15/18 17:20 NT-Pro-B Natriuret Pep 47.0 pg/mL (0-900) 04/15/18 05:35 Total Protein 6.8 g/dL (6.3-8.3) 04/17/18 06:57 Albumin 3.9 g/dL (3.5-5.0) 04/17/18 06:57 Globulin 2.9 gm/dL (2.2-3.9) 04/17/18 06:57 Albumin/Globulin Ratio 1.3 (1.0-2.1) 04/17/18 06:57 Procalcitonin 0.07 NG/ML (0.19-0.49) L 04/15/18 11:05 Arterial Blood Potassium 3.5 mmol/L (3.6-5.2) L 04/15/18 11:19 Urine Color Yellow (YELLOW) 04/15/18 05:40 Urine Clarity Clear (Clear) 04/15/18 05:40 Urine pH 9.0 (5.0-8.0) 04/15/18 05:40 Ur Specific [place] 1.020 (1.003-1.030) 04/15/18 05:40 Urine Protein 1+ mg/dL (NEGATIVE) H 04/15/18 05:40 Urine Glucose (UA) Normal mg/dL (Normal) 04/15/18 05:40 Urine Ketones Negative mg/dL (NEGATIVE) 04/15/18 05:40 Urine Blood Negative (NEGATIVE) 04/15/18 05:40 Urine Nitrate Negative (NEGATIVE) 04/15/18 05:40 Urine Bilirubin Negative (NEGATIVE) 04/15/18 05:40 Urine Urobilinogen Normal mg/dL (0.2-1.0) 04/15/18 05:40 Ur Leukocyte Esterase Neg Eve/uL (Negative) 04/15/18 05:40 Urine WBC (Auto) < 1 /hpf (0-5) 04/15/18 05:40 Urine RBC (Auto) < 1 /hpf (0-3) 04/15/18 05:40 Urine Opiates Screen Negative (NEGATIVE) 04/15/18 05:40 Urine Methadone Screen Negative (NEGATIVE) 04/15/18 05:40 Ur Barbiturates Screen Negative (NEGATIVE) 04/15/18 05:40 Ur Phencyclidine Scrn Negative (NEGATIVE) 04/15/18 05:40 Ur Amphetamines Screen Negative (NEGATIVE) 04/15/18 05:40 U Benzodiazepines Scrn Negative (NEGATIVE) 04/15/18 05:40 U Oth Cocaine Metabols Positive (NEGATIVE) H 04/15/18 05:40 U Cannabinoids Screen Positive (NEGATIVE) H 04/15/18 05:40 HIV 1&2 Antibody Screen Negative (NEGATIVE) 04/16/18 11:18 Influenza Typ A,B (EIA) Negative for flu a/b (NEGATIVE) 04/15/18 06:14 - Hospital Course Hospital Course: 53 year old male with history of PTSD admitted to hospital for fevers and low blood pressure. Patient states on Thursday he began having all of his symptoms including cough, fever, body aches, pleuritic chest pain, weakness, vomiting, and diarrhea. Patient states he had no appetite due to the nausea. Patient states a coworker at work was also sick with similar complaints who went to hospital. Patient states he took multiple Tylenol every 4 hours yesterday to treat his symptoms. Patient states he was walking to hospital but does not remember how he actually got into hospital due to having a syncopal episode. Patient denies constipation, vision changes, sneezing. Patient admits to occasional cocaine and marijuana use. In the hospital patient found to have hypotension and was given NS bolus. Upon admission, patient was started on Tamiflu, Zosyn, and Vancomycin for Flu and PNA coverage. Patient's condition im proved progressively in next 2 days. Patient's regained appetite and his presenting symptoms resolved on day 3. Patient was instructed to take 7 days of Avelox and finished 2 more days of Tamiflu. Patient was educated on cocaine and marijuan cessation. He will also make an appointment for post hospitalization follow up at [facility]. Patient understood and agreed with the treatment pain. Above is a brief summary of patient's hospital course. Please refer to medical records to further details. - Date & Time of H&P Date of H&P: 04/15/18 Time of H&P: 14:57 Discharge Exam - Head Exam Head Exam: NORMAL INSPECTION, NORMOCEPHALIC - Eye Exam Eye Exam: EOMI, Normal appearance, PERRL Pupil Exam: NORMAL ACCOMODATION - ENT Exam ENT Exam: Mucous Membranes Moist, Normal External Ear Exam - Neck Exam Neck exam: Normal Inspection - Respiratory Exam Respiratory Exam: Clear to PA & Lateral, NORMAL BREATHING PATTERN, UNREMARKABLE - Cardiovascular Exam Cardiovascular Exam: REGULAR RHYTHM, +S1, +S2 - GI/Abdominal Exam GI & Abdominal Exam: Normal Bowel Sounds, Soft, Unremarkable - Extremities Exam Extremities exam: normal capillary refill, normal inspection, pedal pulses present - Neurological Exam Neurological exam: Alert, CN II-XII Intact, Oriented x3 - Psychiatric Exam Psychiatric exam: Normal Affect, Normal Mood - Skin Skin Exam: Dry, Intact, Normal Color, Warm Discharge Plan - Discharge Medications Prescriptions: Moxifloxacin HCl 400 mg PO DAILY #7 tablet Oseltamivir Cap [Tamiflu Cap] 75 mg PO BID #4 capsule - Follow Up Plan Condition: STABLE Disposition: HOME/ ROUTINE Instructions: Fever of Unknown Origin (DC), Syncope (DC) Additional Instructions: Patient is to set up primary health at [facility] within 1 week of hospital discharge [facility] [phone] call during week day for appointments Patient will finish medications as prescribed Tamiflu and Avelox Go to the nearest ED if symptoms persist or worsen Referrals: [facility] [Outside]
--- NOTE | 2018-04-17 19:17 | CARD ---
APPROVED REPORT Date of service: 04/15/2018 EKG Measurement Heart [id number] <Conclusion> Normal sinus rhythm Normal Electrocardiogram
== END 2018-04-17 13:45 | disposition home or self-care (01) ==
LOC: C.ER 05:10 → C.6T 08:07
PROVIDERS: ADMIT Internal Medicine; ATTEND Internal Medicine
DX: R55 Syncope and collapse (principal); R07.9 Chest pain, unspecified; A41.9 Sepsis, unspecified organism; F14.10 Cocaine abuse, uncomplicated; F12.90 Cannabis use, unspecified, uncomplicated; F43.10 Post-traumatic stress disorder, unspecified; Z72.0 Tobacco use; D70.9 Neutropenia, unspecified
CPT/HCPCS: 36415; 70450; 71045; 80053; 81001; 82803; 82948; 83735; 83880; 84100; 84145; 84484; 85025; 85378; 85610; 85730; 86703; 87040; 87804; 90732; 93005; 94640; 96360; 99285; G0009; G0378; G0480; J1644; J1885; J2543; J3370; J7030